=== PATIENT | male | born 1955 | race Caucasian/White ===

== ENCOUNTER 2019-08-22 11:40 | Observation (INO) ==
[2019-08-22] MEDS ORDERED: CeFAZolin Syr 2,000MG/20 ML 2,000 MG/20 ML SYRINGE IVPB ONE (12:17)
[2019-08-22] MEDS ORDERED: ROPIVACAINE/PF/NS 0.25% 1 EACH SYRINGE INTRAART ONE (12:21)
[2019-08-22] MEDS ORDERED: *HR* PHENYLEPHRINE 1,000 MCG/10 ML SYRINGE IVP ONE (12:26)
[2019-08-22] MEDS ORDERED: Ringers Solution, Lactated 1,000 ML IVC SCH (12:30)
[2019-08-22] MEDS ORDERED: Celecoxib 200 MG CAPSULE PO ONE (12:42)
[2019-08-22] MEDS ORDERED: Gabapentin 300 MG CAPSULE PO ONE (12:42)
[2019-08-22] MEDS ORDERED: *HR* OxyCODONE ER (12 HR) 10 MG TABLET PO ONE (12:43)
[2019-08-22] MEDS ORDERED: *HR* OxyCODONE Immed Rel 5 MG TABLET PO PRN (12:44)
[2019-08-22] MEDS ORDERED: Ondansetron 4 MG/2 ML VIAL IVP ONE (12:44)
[2019-08-22] MEDS ORDERED: *HR* Midazolam HCl 5 MG/5 ML VIAL IVP ONE (13:06)
[2019-08-22] MEDS ORDERED: *HR* FentaNYL (PF) 100 MCG/2 ML VIAL ONE ×3 (13:07→15:43)
[2019-08-22] MEDS ORDERED: Lidocaine -MPF 2% 2 ML VIAL ONE (13:07)
[2019-08-22] MEDS ORDERED: *HR* Propofol 200 MG/20 ML VIAL IVP ONE (13:07)
[2019-08-22] MEDS ORDERED: Ondansetron 4 MG/2 ML VIAL ONE (13:07)
[2019-08-22] MEDS ORDERED: Ropivacaine/PF 0.5% 30 ML VIAL ONE (13:21)
[2019-08-22] MEDS ORDERED: Total Joint Mixture (50 ml) IR ONE (13:50)
[2019-08-22] MEDS ORDERED: Ethanol\\Acetic Acid\\Na Ace\\Ben 1,000 ML IRRIG.SOLN IR ONE (13:51)
[2019-08-22] MEDS ORDERED: Tranexamic Acid 1,000 MG/10 ML VIAL ONE (14:22)
[2019-08-22] MEDS ORDERED: EPINEPHrine 1 MG/ML VIAL ONE (14:48)
[2019-08-22] MEDS ORDERED: EPHEDrine 50 MG/ML VIAL ONE (14:49)
[2019-08-22] MEDS: *HR* HYDROmorphone (PF) 1 MG/ML SYRINGE IVP PRN ×2 (17:10→17:30)
[2019-08-22 17:48] LABS: Hematocrit 37.6 % (37.5-50.1); Hemoglobin 12.1 g/dL (12.9-16.9)
[2019-08-22] MEDS ORDERED: Nitroglycerin 0.4 MG TAB.SUBL SL PRN (17:54)
[2019-08-22] MEDS ORDERED: traMADol 50 MG TABLET PO PRN (17:54)
[2019-08-22] MEDS ORDERED: MOM Conc 10 ML UD.LIQ PO PRN (17:54)
[2019-08-22] MEDS ORDERED: Ondansetron 4 MG/2 ML VIAL IVP PRN (17:54)
[2019-08-22] MEDS ORDERED: *HR* Promethazine 25 MG/ML VIAL IVP PRN (17:54)
[2019-08-22] MEDS ORDERED: Naloxone 0.4 MG/ML INJ IVP PRN (17:54)
[2019-08-22] MEDS ORDERED: Sennosides 8.6 MG TABLET PO PRN (17:54)
[2019-08-22] MEDS: Ascorbic Acid 500 MG TABLET PO SCH (19:25)
[2019-08-22] MEDS: *HR* OxyCODONE Immed Rel 5 MG TABLET PO PRN (20:06)
[2019-08-22] MEDS: Temazepam 15 MG CAPSULE PO PRN (21:56)
[2019-08-23 05:09] LABS: Hematocrit 37.3 % (37.5-50.1); Immature Granulocytes % 0.3 % (0-4); Lymphocytes # 0.3 K/mcL (0.6-4.6); Lymphocytes % 3.9 %; Mean Corpuscular HGB Conc 32.2 g/dL (31.6-35.5); Mean Corpuscular Hemoglobin 28.8 pg (28.0-33.3); Mean Corpuscular Volume 89.7 fL (83.0-100.0); Mean Platelet Volume 8.8 fL (9.4-12.4); Monocytes # 0.1 K/mcL (0.0-1.3); Monocytes % 1.4 %; Neutrophils # 7.5 K/mcL (1.6-8.9); Platelet Count 282 K/mcL (140-400); Red Blood Count 4.16 M/mcL (4.19-5.50); Red Cell Distribution Width 12.7 % (11.5-14.5); Segmented Neutrophils % 94.4 %
[2019-08-23] MEDS: *HR* Enoxaparin 30 MG/0.3 ML SYRINGE SQ SCH ×2 (05:18→17:17)
[2019-08-23 05:28] LABS: BUN/Creatinine Ratio 18 (6-26); Blood Urea Nitrogen 18 mg/dL (8-23); Calcium 8.3 mg/dL (8.6-10.3); Carbon Dioxide 23 mEq/L (23-29); Chloride 105 mEq/L (98-107); Glucose 235 mg/dL (70-105); Osmolality,Calculated 287 (280-300); Potassium 4.1 mEq/L (3.5-5.1); Sodium 134 mEq/L (136-145); eGFR For African Americans > 60 (> 60); eGFR For Non-African Americans > 60 (> 60)
[2019-08-23] MEDS: Ascorbic Acid 500 MG TABLET PO SCH ×2 (08:20→15:37)
[2019-08-23] MEDS: Multivit/Ca/Min/Fe/FA 1 TAB TABLET PO SCH (08:20)
[2019-08-23] MEDS: HYDROcodone BIT/Homatropine 5 MG TABLET PO PRN (10:38)
[2019-08-23] MEDS: *HR* OxyCODONE Immed Rel 5 MG TABLET PO PRN ×2 (15:37→22:32)
[2019-08-23] MEDS: Ringers Solution, Lactated 1,000 ML IVC SCH ×2 (19:13→20:46)
[2019-08-23] MEDS: Temazepam 15 MG CAPSULE PO PRN (22:32)
[2019-08-24 05:16] LABS: Basophils % 0.1 %; Eosinophils % 0.1 %; Hematocrit 32.4 % (37.5-50.1); Hemoglobin 10.5 g/dL (12.9-16.9); Immature Granulocytes % 0.4 % (0-4); Lymphocytes % 7.9 %; Mean Corpuscular HGB Conc 32.4 g/dL (31.6-35.5); Mean Corpuscular Hemoglobin 29.1 pg (28.0-33.3); Mean Corpuscular Volume 89.8 fL (83.0-100.0); Mean Platelet Volume 8.9 fL (9.4-12.4); Monocytes # 0.8 K/mcL (0.0-1.3); Monocytes % 5.9 %; Platelet Count 257 K/mcL (140-400); Red Blood Count 3.61 M/mcL (4.19-5.50); Red Cell Distribution Width 12.8 % (11.5-14.5); Segmented Neutrophils % 85.6 %
[2019-08-24] MEDS: HYDROcodone BIT/Homatropine 5 MG TABLET PO PRN (05:19)
[2019-08-24] MEDS: *HR* Enoxaparin 30 MG/0.3 ML SYRINGE SQ SCH ×2 (05:19→18:35)
[2019-08-24 05:21] LABS: White Blood Count 12.9 K/mcL (4.3-11.1)
[2019-08-24 05:31] LABS: BUN/Creatinine Ratio 19 (6-26); Blood Urea Nitrogen 20 mg/dL (8-23); Calcium 8.4 mg/dL (8.6-10.3); Carbon Dioxide 25 mEq/L (23-29); Chloride 109 mEq/L (98-107); Glucose 131 mg/dL (70-105); Osmolality,Calculated 290 (280-300); Potassium 4.2 mEq/L (3.5-5.1); Sodium 138 mEq/L (136-145); eGFR For African Americans > 60 (> 60); eGFR For Non-African Americans > 60 (> 60)
[2019-08-24] MEDS: *HR* OxyCODONE Immed Rel 5 MG TABLET PO PRN ×3 (06:21→20:50)
[2019-08-24] MEDS: Ringers Solution, Lactated 1,000 ML IVC SCH (08:00)
[2019-08-24] MEDS: Ascorbic Acid 500 MG TABLET PO SCH ×2 (08:14→17:15)
[2019-08-24] MEDS: Ketorolac 30 MG/ML VIAL IVP PRN ×2 (08:17→15:27)
[2019-08-24] MEDS: Multivit/Ca/Min/Fe/FA 1 TAB TABLET PO SCH (08:18)
[2019-08-24] MEDS: Temazepam 15 MG CAPSULE PO PRN (21:56)
[2019-08-25] MEDS: HYDROcodone BIT/Homatropine 5 MG TABLET PO PRN ×2 (02:42→10:00)
[2019-08-25 04:47] LABS: Hematocrit 30.7 % (37.5-50.1); Mean Corpuscular HGB Conc 32.6 g/dL (31.6-35.5); Mean Corpuscular Hemoglobin 29.2 pg (28.0-33.3); Mean Corpuscular Volume 89.5 fL (83.0-100.0); Mean Platelet Volume 8.9 fL (9.4-12.4); Platelet Count 262 K/mcL (140-400); Red Blood Count 3.43 M/mcL (4.19-5.50); Red Cell Distribution Width 13.1 % (11.5-14.5); White Blood Count 8.1 K/mcL (4.3-11.1)
[2019-08-25] MEDS: *HR* OxyCODONE Immed Rel 5 MG TABLET PO PRN ×4 (04:55→16:15)
[2019-08-25] MEDS: *HR* Enoxaparin 30 MG/0.3 ML SYRINGE SQ SCH (04:56)
[2019-08-25 05:08] LABS: BUN/Creatinine Ratio 20 (6-26); Blood Urea Nitrogen 20 mg/dL (8-23); Calcium 8.2 mg/dL (8.6-10.3); Carbon Dioxide 26 mEq/L (23-29); Chloride 108 mEq/L (98-107); Glucose 125 mg/dL (70-105); Osmolality,Calculated 286 (280-300); Potassium 3.8 mEq/L (3.5-5.1); Sodium 136 mEq/L (136-145); eGFR For African Americans > 60 (> 60); eGFR For Non-African Americans > 60 (> 60)
[2019-08-25] MEDS: Multivit/Ca/Min/Fe/FA 1 TAB TABLET PO SCH (08:12)
[2019-08-25] MEDS: Ascorbic Acid 500 MG TABLET PO SCH (08:12)
[2019-08-25 11:23] VITALS: BP 136/76
== END 2019-08-25 16:44 ==
LOC: SAMDAY 11:40 → 3NENU 11:40
PROVIDERS: ADMIT Orthopaedic Surgery; ATTEND Orthopaedic Surgery